=== PATIENT | female | born 1995 | race Two or more races ===

== ENCOUNTER 2020-11-04 19:57 | Emergency (ER) | payer MEDICAID ==
[~2020-11-04] VITALS: Ht 157.5 cm; Wt 68.9 kg
--- NOTE | 2020-11-04 21:00 | NUR ---
presented to the ER for c/o fever 4 days post c/s. denied any other pain such as h/a. no cough. no dysuria or hematuri reported. pt was placed in bed 16 er, on monitor. noted w/ some serosanguineous drainage from the sx site, no pus, w/ intact stri strips. will cont to monitor
[2020-11-04 21:30] LABS: BASOPHILS # (AUTO) 0.1 K/uL (0.0-0.2); BASOPHILS % (AUTO) 0.6 % (0.0-2.0); EOSINOPHILS % (AUTO) 0.4 % (0.0-6.0); HEMATOCRIT 30 % (33-45); LYMPHOCYTES # (AUTO) 2.1 K/uL (0.8-4.8); LYMPHOCYTES % (AUTO) 9.5 % (20.0-44.0); MEAN CORPUSCULAR HGB CONC 33 g/dl (31.0-36.0); MEAN CORPUSCULAR VOLUME 85 fL (82-100); MONOCYTES % (AUTO) 4.7 % (2.0-12.0); NEUTROPHILS # (AUTO) 18.2 K/uL (1.8-8.9); NEUTROPHILS % (AUTO) 84.8 % (43.0-81.0); PLATELET COUNT (AUTO) 613 K/uL (150-450); RED BLOOD CELL COUNT(AUTO) 3.53 MIL/uL (4.0-5.2); WHITE BLOOD COUNT (AUTO) 21.5 K/uL (4.3-11.0)
[2020-11-04] MEDS ORDERED: IV NS 0.9% 1,000 ML BAG IV ONE (21:30)
[2020-11-04 21:37] LABS: BILIRUBIN,URINE Negative (NEGATIVE); COLOR,URINE DARK YELLOW (YELLOW); LEUKOCYTE ESTERASE ,URINE Small (NEGATIVE); NITRITE, URINE Negative (NEGATIVE); PH,URINE 6.5 (5.0-8.0); PROTEIN,URINE 30 mg/dl (NEGATIVE); UGLUCOSE Negative (NEGATIVE); UROBILINOGEN,URINE 0.2 EU/dL (0.2)
[2020-11-04 21:54] LABS: ALBUMIN 2.6 g/dL (3.4-5.0); BILIRUBIN,DIRECT 0.1 mg/dL (0.0-0.2); BILIRUBIN,TOTAL 0.2 mg/dL (0.2-1.0); CALCIUM, SERUM 8.7 mg/dL (8.5-10.1); CREATININE 0.8 mg/dL (0.6-1.3); TOTAL PROTEIN, SERUM 7.7 g/dL (6.4-8.2)
[2020-11-04] MEDS ORDERED: SULFAMETH/TRIMETH 800/160 MG 1 UDTAB TABLET PO ONE (22:00)
[2020-11-04] MEDS ORDERED: CEFTRIAXONE 1GM BAG (ER ONLY) 1 GM/50 ML PIGGYBACK IV ONE (22:00)
[2020-11-04] MEDS ORDERED: SULFAMETH/TRIMETH 800/160 MG 1 UDTAB TABLET ONE (22:03)
[2020-11-04] MEDS ORDERED: CEFTRIAXONE 1GM BAG (ER ONLY) 50 ML IV ONE (22:03)
[2020-11-04 22:18] LABS: BACTERIA,URINE 1+ /HPF (None Seen); SQUAMOUS EPITHELIAL CELL,UR Few /HPF (None Seen)
[2020-11-04] MEDS ORDERED: SULF1TAB48 PO (23:08)
[2020-11-04] MEDS ORDERED: CEPH500T PO (23:08)
--- NOTE | 2020-11-04 23:26 | NUR ---
PT IS MEDICALLY STABLE FOR DC. IV removed. Catheter intact and site benign. Pressure and 4x4 applied to site. No bleeding noted.Patient discharged to home in stable condition. Rx and Written and verbal after care instructions given. Patient verbalizes understanding of instruction.
[2020-11-04 23:28] VITALS: BP 119/87
== END 2020-11-04 23:28 | disposition home or self-care (01) ==
LOC: ER 20:02
DX: O86.4 Pyrexia of unknown origin following delivery (principal); D72.829 Elevated white blood cell count, unspecified; O90.81 Anemia of the puerperium; O86.20 Urinary tract infection following delivery, unspecified
CPT/HCPCS: 36415; 80048; 80076; 81001; 83605; 85025; 87040 ×2; 96361; 96365; 99284; J0696; J7030; 87086-TC